=== PATIENT | female | born 1980 | race Caucasian/White ===

== ENCOUNTER 2017-09-22 13:14 | Day surgery (SDC) | payer OTHER ==
[~2017-09-22] VITALS: Ht 175.3 cm; Wt 134.4 kg
[~2017-09-22 13:14] MED LIST: ALPR.5; CLARITIN-D 121 EACH PO; CYCL10 PO; ERGO400; GIANVI 3 MG-0.1 EACH; HYDACE5 PO; HYOS.125; IBUP600 PO; IBUP800 PO; Sprintec1 EACH PO
== END 2017-09-22 15:58 | disposition home or self-care (01) ==
LOC: ORSCSDS 13:14
PROVIDERS: Internal Medicine Gastroenterology
PROC: 0DBL8ZX Excision of Transverse Colon, Via Natural or Artificial Opening Endoscopic, Diagnostic (ICD-10-PCS; principal; 2017-09-22 14:30)
PROC: 0DBK8ZX Excision of Ascending Colon, Via Natural or Artificial Opening Endoscopic, Diagnostic (ICD-10-PCS; principal; 2017-09-22 14:30)
PROC: 0DBM8ZX Excision of Descending Colon, Via Natural or Artificial Opening Endoscopic, Diagnostic (ICD-10-PCS; principal; 2017-09-22 14:30)
PROC: 0DB68ZX Excision of Stomach, Via Natural or Artificial Opening Endoscopic, Diagnostic (ICD-10-PCS; principal; 2017-09-22 14:30)
PROC: 0DB88ZX Excision of Small Intestine, Via Natural or Artificial Opening Endoscopic, Diagnostic (ICD-10-PCS; principal; 2017-09-22 14:30)
DX: R19.7 Diarrhea, unspecified (principal); R10.9 Unspecified abdominal pain; K21.9 Gastro-esophageal reflux disease without esophagitis; K29.70 Gastritis, unspecified, without bleeding; D12.4 Benign neoplasm of descending colon; D12.2 Benign neoplasm of ascending colon; D12.3 Benign neoplasm of transverse colon; K57.30 Diverticulosis of large intestine without perforation or abscess without bleeding; K64.1 Second degree hemorrhoids; Z79.899 Other long term (current) drug therapy
CPT/HCPCS: 88305; 88342; J1980; J2250; J7120

== ENCOUNTER 2018-09-02 06:31 | Day surgery (SDC) | payer OTHER ==
[~2018-09-02] VITALS: Ht 175.3 cm; Wt 135.0 kg
[2018-09-02] MEDS ORDERED: MELO7.5 (07:21)
[2018-09-02] MEDS ORDERED: ALLEGRA ALLERG180 MG (07:21)
[2018-09-02] MEDS ORDERED: Gas Relief80 MG (07:22)
--- NOTE | 2018-09-02 07:27 | NUR ---
09/02/18 0727 Brigitte Schuster 6 IV ATTEMPTS FIRST ATTEMPT IN L HAND BY RXS INFILTRATED SECOND ATTEMPT IN L FOREARM NO FLASHBACK THIRD ATTEMPTS IN R FOREARM BY [facility] WOULD NOT ADVANCE FOURTH ATTEMPT BY [facility] IN R AC SUCCESSFUL
--- NOTE | 2018-09-02 08:54 | NUR ---
09/02/18 0854 Tessa Soto GELFOAM APPLIED FOR DRESSING
== END 2018-09-02 10:00 | disposition home or self-care (01) ==
LOC: ORSCSDS 06:31 → ORD 07:30 → ORSCSDS 10:00
PROVIDERS: Surgery
PROC: 06BY0ZC Excision of Hemorrhoidal Plexus, Open Approach (ICD-10-PCS; principal; 2018-09-02 07:30)
DX: K64.3 Fourth degree hemorrhoids (principal); F17.210 Nicotine dependence, cigarettes, uncomplicated; E66.01 Morbid (severe) obesity due to excess calories; Z68.41 Body mass index [BMI] 40.0-44.9, adult; Z79.899 Other long term (current) drug therapy
CPT/HCPCS: 88304; J1100; J1885; J2250; J2405; J3010; J7120

== ENCOUNTER 2019-05-26 20:15 | Emergency (ER) | payer OTHER ==
[~2019-05-26] VITALS: Ht 175.3 cm; Wt 131.5 kg
[~2019-05-26 20:15] MED LIST changes: +ALLEGRA ALLERG180 MG; +Gas Relief80 MG; +MELO7.5
[2019-05-26] MEDS ORDERED: Robaxin-750750 MG PO (22:05)
[2019-05-26] MEDS ORDERED: Roxicodone5 MG PO (22:05)
== END 2019-05-26 22:09 | disposition home or self-care (01) ==
LOC: ER 20:15
DX: S01.81XA Laceration without foreign body of other part of head, initial encounter (principal); S43.51XA Sprain of right acromioclavicular joint, initial encounter; F41.9 Anxiety disorder, unspecified; F17.200 Nicotine dependence, unspecified, uncomplicated; Z88.0 Allergy status to penicillin; Z88.1 Allergy status to other antibiotic agents; Z79.899 Other long term (current) drug therapy; Z79.1 Long term (current) use of non-steroidal anti-inflammatories (NSAID); V86.59XA Driver of other special all-terrain or other off-road motor vehicle injured in nontraffic accident, initial encounter
CPT/HCPCS: 12001; 73030; 96372-59; 99283-25; A9270; J1885

== ENCOUNTER 2021-10-17 13:41 | Day surgery (SDC) | payer OTHER ==
[~2021-10-17] VITALS: Ht 175.3 cm; Wt 138.9 kg
[~2021-10-17 13:41] MED LIST changes: +MELA3; +MULVITA; +PROBIOTIC1 EA13; +PSEUDOEPHEDRINE; +Robaxin-750750 MG PO; +Roxicodone5 MG PO
== END 2021-10-17 17:15 | disposition home or self-care (01) ==
LOC: ORSCSDS 13:41
PROVIDERS: Internal Medicine Gastroenterology
PROC: 0DBH8ZX Excision of Cecum, Via Natural or Artificial Opening Endoscopic, Diagnostic (ICD-10-PCS; principal; 2021-10-17 14:45)
PROC: 0DBM8ZX Excision of Descending Colon, Via Natural or Artificial Opening Endoscopic, Diagnostic (ICD-10-PCS; principal; 2021-10-17 14:45)
PROC: 0DBP8ZX Excision of Rectum, Via Natural or Artificial Opening Endoscopic, Diagnostic (ICD-10-PCS; principal; 2021-10-17 14:45)
PROC: 0DBL8ZX Excision of Transverse Colon, Via Natural or Artificial Opening Endoscopic, Diagnostic (ICD-10-PCS; principal; 2021-10-17 14:45)
DX: Z12.11 Encounter for screening for malignant neoplasm of colon (principal); Z86.010 Personal history of colon polyps; Z83.71 Family history of colonic polyps; D12.3 Benign neoplasm of transverse colon; D12.0 Benign neoplasm of cecum; K63.5 Polyp of colon; K62.1 Rectal polyp; K64.4 Residual hemorrhoidal skin tags; F41.9 Anxiety disorder, unspecified; Z79.899 Other long term (current) drug therapy; F17.210 Nicotine dependence, cigarettes, uncomplicated; K21.9 Gastro-esophageal reflux disease without esophagitis; E66.01 Morbid (severe) obesity due to excess calories; Z68.42 Body mass index [BMI] 45.0-49.9, adult
CPT/HCPCS: 88305; J0330; J0461; J2250; J2405; J2704; J7120

== ENCOUNTER → 2022-03-30 | Outpatient (CLI) | payer OTHER ==
[2022-04-01 15:10] LABS: HPV 16 Negative (Negative); HPV 18 Negative (Negative); HPV OTHER HR TYPES Negative (Negative)
== END | disposition home or self-care (01) ==
LOC: LAB 15:45 → LAB SHORT 15:45
PROVIDERS: Registered Nurse
DX: Z12.4 Encounter for screening for malignant neoplasm of cervix (principal)
CPT/HCPCS: 87624; G0123

== ENCOUNTER → 2022-12-24 | Outpatient (CLI) | payer OTHER | END | disposition home or self-care (01) | LOC: LAB SHORT 10:21 → LAB 10:21 | DX: R14.0 Abdominal distension (gaseous) (principal) | CPT/HCPCS: 82653 ==

== ENCOUNTER 2023-10-14 12:44 | Day surgery (SDC) | payer OTHER ==
[~2023-10-14] VITALS: Ht 175.3 cm; Wt 135.7 kg
[~2023-10-14 12:44] MED LIST changes: +Lactated Ringer's 1,000 ML IV ONE
[2023-10-14] MEDS ORDERED: CREON DR 12,001 EACH (13:10)
[2023-10-14] MEDS ORDERED: Midazolam HCl 1MG / ML 2ML Vial ONE (13:32)
[2023-10-14] MEDS ORDERED: propofoL 50 ML IV ONE (13:34)
[2023-10-14] MEDS ORDERED: Lactated Ringer's 1,000 ML IV ONE (13:46)
[2023-10-14 14:41] VITALS: BP 141/112
== END 2023-10-14 14:41 | disposition home or self-care (01) ==
LOC: ORSCSDS 12:44
PROVIDERS: Specialist
PROC: 0DB68ZX Excision of Stomach, Via Natural or Artificial Opening Endoscopic, Diagnostic (ICD-10-PCS; principal; 2023-10-14 14:00)
PROC: 0DBN8ZX Excision of Sigmoid Colon, Via Natural or Artificial Opening Endoscopic, Diagnostic (ICD-10-PCS; principal; 2023-10-14 14:00)
PROC: 0DB98ZX Excision of Duodenum, Via Natural or Artificial Opening Endoscopic, Diagnostic (ICD-10-PCS; principal; 2023-10-14 14:00)
PROC: 0DBE8ZX Excision of Large Intestine, Via Natural or Artificial Opening Endoscopic, Diagnostic (ICD-10-PCS; principal; 2023-10-14 14:00)
DX: K62.5 Hemorrhage of anus and rectum (principal); K63.5 Polyp of colon; K64.8 Other hemorrhoids; K58.2 Mixed irritable bowel syndrome; Z83.710 Family history of adenomatous and serrated polyps; Z86.010 Personal history of colon polyps; Z79.899 Other long term (current) drug therapy; F41.9 Anxiety disorder, unspecified; F17.210 Nicotine dependence, cigarettes, uncomplicated
CPT/HCPCS: 88305; 88342; J2250; J2704; J7120

== ENCOUNTER 2024-09-24 14:40 | Emergency (ER) | payer OTHER ==
[~2024-09-24] VITALS: Ht 175.3 cm; Wt 136.1 kg
[~2024-09-24 14:40] MED LIST changes: +CREON DR 12,001 EACH; -Lactated Ringer's 1,000 ML IV ONE
[2024-09-24 14:50] VITALS: BP 152/103
[2024-09-24] MEDS ORDERED: HYDROCORTISON28.4 G2 RC (16:11)
[2024-09-24] MEDS ORDERED: HYDR25SUP PR (16:11)
[2024-09-24] MEDS ORDERED: CREON DR 36,001 EACH PO (16:12)
[2024-09-24] MEDS ORDERED: Ketorolac Tromethamine 15mg Vial IM ONE (16:50)
[2024-09-24] MEDS ORDERED: OxyCODONE HCL 5 MG TAB PO ONE (16:50)
[2024-09-24] MEDS ORDERED: Lidocaine 5% Ointment 35 gm TOP ONE (16:50)
[2024-09-24] MEDS ORDERED: PRED20 PO ×2 (16:53→17:19)
[2024-09-24] MEDS ORDERED: ASPERFLEX LIDOC15 GM EXT ×2 (16:53→17:19)
[2024-09-24] MEDS ORDERED: Percocet 5-3251 EACH PO (16:58)
[2024-09-24] MEDS ORDERED: PredniSONE 20 MG Tab PO ONE (17:00)
== END 2024-09-24 17:23 | disposition home or self-care (01) ==
LOC: ER 14:40
DX: K64.8 Other hemorrhoids (principal); F17.200 Nicotine dependence, unspecified, uncomplicated; Z79.899 Other long term (current) drug therapy; Z91.048 Other nonmedicinal substance allergy status; Z88.0 Allergy status to penicillin
CPT/HCPCS: 96372; 99282-25; A9270; J1885; J7512

== ENCOUNTER → 2025-09-04 | Outpatient (CLI) | payer OTHER ==
[~2025-09-04] MED LIST changes: +ASPERFLEX LIDOC15 GM EXT; +CREON DR 36,001 EACH PO; +HYDR25SUP PR; +HYDROCORTISON28.4 G2 RC; +PRED20 PO; +Percocet 5-3251 EACH PO
[2025-09-06 23:08] LABS: CALPROTECTIN,FECAL 53 ug/g (<=49)
== END | disposition home or self-care (01) ==
LOC: LAB SHORT 11:15 → LAB 11:15 → LAB FUT 07-18 17:55
PROVIDERS: Nurse Practitioner
DX: K52.9 Noninfective gastroenteritis and colitis, unspecified (principal)
CPT/HCPCS: 83993